=== PATIENT | male | born 1980 | race Caucasian/White ===

== ENCOUNTER 2022-09-04 06:27 | Emergency (ER) | payer MEDICAID ==
--- NOTE | 2022-09-04 06:56 | ED Physician Documentation ---
History of Present Illness - Stated complaint Stated Complaint: CONSTIPATION - Chief complaint Chief Complaint: Abd Pain - History obtained from History obtained from: Patient - Additonal information Additional information: 42-year-old man presented to the emergency department with constipation despite taking enemas last night. No other complaints. PD PAST MEDICAL HISTORY - Past Surgical History Past Surgical History: No - Present Medications Home Medications: Ambulatory Orders Medication Instructions Recorded Confirmed Sulfamethox/Trimeth 800/160 1 each PO BID #14 tablet 10/13/19 [Bactrim Ds 800/160] cephALEXin [Keflex] 500 mg PO Q6H #28 capsule 10/13/19 Sennosides/Docusate Sodium 1 each PO QDAC PRN #30 tablet 09/04/22 [Senna-Docusate Sodium Tablet] polyethylene glycoL 3350 [Miralax] 17 gm PO DAILY #15 packet 09/04/22 - Allergies Allergies/Adverse Reactions: Allergies Allergy/AdvReac Type Severity Reaction Status Date / Time No Known Drug Allergies Allergy Verified 10/13/19 01:06 - Social History Does the pt smoke?: Yes Smoking Status: Current every day smoker Does the pt drink ETOH?: No Does the pt have substance abuse?: Yes - Immunizations Immunizations are current?: Yes - POLST Patient has POLST: No PD ED PE NORMAL - Vitals Vital signs reviewed: Yes - General General: Alert and oriented X 3, No acute distress, Well developed/nourished - HEENT HEENT: Atraumatic, PERRL, EOMI - Rectal Rectal: Other (hard brown stool in rectal vault) - Derm Derm: Normal color, Warm and dry Results - Vitals Vitals: Vital Signs - 24 hr 09/04/22 06:34 Heart Rate 79 Respiratory 18 Rate Blood Pressure 147/85 H O2 Saturation 99 Oxygen O2 Source Room air PD Medical Decision Making - ED course ED course: 42-year-old man presented to the ED with constipation. I digitally disimpacted him and he immediately went to the bathroom, had a bowel movement. Prescription sent for MiraLAX and senna. Return precautions given. Plan to follow-up with primary care provider Departure - Departure Disposition: 01 Home, Self Care Clinical Impression: Constipation Condition: Stable Instructions: ED Constipation Prescriptions: polyethylene glycoL 3350 [Miralax] 17 gm PO DAILY #15 packet Sennosides/Docusate Sodium [Senna-Docusate Sodium Tablet] 1 each PO QDAC PRN #30 tablet PRN Reason: Constipation Comments: You are seen in the emergency department for constipation. Please make sure you drink lots of water and take senna and docusate as needed as well as MiraLAX. Follow-up with your primary care provider and return to the emergency department for new or worsening symptoms or other concerns.
[2022-09-04 07:11] VITALS: BP 138/74
== END 2022-09-04 07:16 | disposition home or self-care (01) ==
LOC: ED 06:27
DX: K59.00 Constipation, unspecified (principal); F17.200 Nicotine dependence, unspecified, uncomplicated
CPT/HCPCS: 99281; 99283